=== PATIENT | female | born 1985 | race Caucasian/White ===

== ENCOUNTER 2018-07-31 09:35 | Day surgery (SDC) | payer OTHER ==
[~2018-07-31] VITALS: Ht 175.3 cm; Wt 114.5 kg
[~2018-07-31 09:35] MED LIST: D3 S20002 PO; MULTTAB12 PO
[2018-07-31 10:11] LABS: URINE PREG TEST NEGATIVE (NEGATIVE)
[2018-07-31] MEDS ORDERED: LIDOCAINE W/EPINEPHRINE 1% 20ML VIAL As Ordered ONE (12:36)
[2018-07-31] MEDS ORDERED: BUPIVACAINE/EPIN 0.5% 30 ML VIAL As Ordered ONE (12:36)
[2018-07-31] MEDS ORDERED: PROPOFOL 200 MG/20 ML VIAL As Ordered ONE (12:37)
[2018-07-31] MEDS ORDERED: dexameTHASONE 4 MG/ML 1ML VIAL (J1100) As Ordered ONE (12:38)
[2018-07-31] MEDS ORDERED: MIDAZOLAM INJ 2 MG/2 ML VIAL (J2250) As Ordered ONE (12:38)
[2018-07-31] MEDS ORDERED: fentaNYL 100 MCG/2 ML INJECTION (J3010) As Ordered ONE ×2 (12:38→13:12)
[2018-07-31] MEDS ORDERED: ROCURONIUM BROMIDE 50 MG/5 ML VIAL As Ordered ONE (12:55)
[2018-07-31] MEDS ORDERED: LR 1,000 ML IV ONE (13:00)
[2018-07-31] MEDS ORDERED: ACETAMINOPHEN 1000MG 100ML IV BTL (OFIRMEV) (J0131 PER 10MG) As Ordered ONE (13:05)
[2018-07-31] MEDS ORDERED: ONDANSETRON 4MG/2ML VIAL (J2405) As Ordered ONE (13:08)
[2018-07-31] MEDS ORDERED: SUGAMMADEX SODIUM 500 MG/5 ML VIAL (BRIDION) As Ordered ONE (13:12)
[2018-07-31] MEDS ORDERED: METOCLOPRAMIDE INJ 10MG/2ML VIAL (J2765) IV PRN (13:45)
[2018-07-31] MEDS ORDERED: PROMETHAZINE INJ 25 MG/ML VIAL (J2550) IV PRN (13:45)
[2018-07-31] MEDS ORDERED: LR 1,000 ML IV SCH ×2 (13:45)
[2018-07-31] MEDS ORDERED: fentaNYL 100 MCG/2 ML INJECTION (J3010) IV PRN (13:45)
[2018-07-31] MEDS ORDERED: NORCO, ANEXSIA 5/325MG TABLET (HYDROcodone/ACETAMINOPHEN) PO PRN (14:00)
[2018-07-31] MEDS ORDERED: IBUPROFEN 100 MG/5 ML SUSP UDC DYE FREE PO ONE (15:00)
[2018-07-31 15:06] VITALS: BP 120/80
--- NOTE | 2018-08-01 00:13 | RO ---
DATE OF PROCEDURE: 07/31/2018 PREPROCEDURE DIAGNOSIS: Chronic tonsillitis. POSTPROCEDURE DIAGNOSIS: Chronic tonsillitis. PROCEDURE: Tonsillectomy. SURGEON: Bobby Williamson MD SPACE ENGINEER: ANESTHESIA: General. DESCRIPTION OF PROCEDURE: Under general anesthesia with the patient intubated, a Richardson-Luciano mouth gag was inserted. The tonsil area was infiltrated with lidocaine, epinephrine and Marcaine. Using cautery, I dissected the tonsil out on both sides. The base and apex and other areas were cauterized. The patient tolerated the procedure well. No blood loss. The patient was extubated and transferred to the recovery room in excellent condition.
== END 2018-07-31 15:10 | disposition home or self-care (01) ==
LOC: M SDC 09:35 → MERGE 11:45 → M SDC 15:10
PROVIDERS: ATTEND Otolaryngology
DX: J35.01 Chronic tonsillitis (principal); G43.909 Migraine, unspecified, not intractable, without status migrainosus
CPT/HCPCS: 42826; 84703; 88302; J0131; J1100; J2250; J2405; J2765; J3010